=== PATIENT | male | born 1975 | race Caucasian/White ===

== ENCOUNTER 2016-06-07 22:28 | Emergency (ER) | payer OTHER ==
--- NOTE | 2016-06-07 22:32 | PDOC ---
History of Present Illness - General Chief Complaint: Pain, Acute Stated Complaint: PAIN RIGHT CHEST X 3 DAYS Time Seen by Provider: 06/07/16 22:31 History Source: Patient Exam Limitations: No Limitations - History of Present Illness Initial Comments: 06/07/16 22:38 This is a 40-year-old male who comes in complaining of right-sided pleuritic type chest pain. Patient said is been constant 3 days. Patient took some ibuprofen earlier today without relief. Patient denies any cough, congestion, fever, chills. Patient denies any recent heavy lifting or trauma. Patient denies any recent travel. Patient denies any swelling or pain in his legs or PE risk factors. Patient denies any history of family pulmonary embolism. Patient said he is otherwise healthy takes no medication. Patient denies history of similar pain in the past. PAST MEDICAL HISTORY: no significant history PAST SURGICAL HISTORY: no significant history FAMILY HISTORY: no pertinant history SOCIAL HISTORY: Pt lives with family and is employed. MEDICATIONS: reviewed ALLERGIES: As per nursing notes Review of Systems General: No fevers or chills, no weakness, no weight loss HEENT: No change in vision. No sore throat,. No ear pain CardioVascular: Pleuritic type chest pain right-sided as per history of present illness Respiratory:No cough, or wheezing. Gastrointestinal: no nausea, vomitting, diarrhea or constipation, No rectal bleeding Genitourinary: No dysuria, hematuria, or frequency Musculoskeletal: No joint or muscle pain or swelling Neurologic: No headache, vertigo, dizziness or loss of consciousness Psychiatric: nor depression Skin: No rashes or easy bruising Endocrine: no increased thirst or abnormal weight change Allergic: no skin or latex allergy All other systems reviewed and normal Exam: General: Well-nourished well-developed individual, no acute distress HEENT: Throat: Normal, tonsils normal, no erythema or exudate Neck: Supple, no meningeal signs, no lymphadenopathy Eyes::Pupils equal reactive and round, extraocular motion intact Chest: Pain is reproduced on palpation of the right chest. There is no ecchymosis, erythema, or swelling of the area. Cardiac: S1-S2 normal, regular rate and rhythm, no murmurs rubs or gallops Respiratory: Lungs clear to auscultation bilateral Abdomen: Soft, nondistended, normal bowel sounds, nontender to palpation diffusely Extremities: Warm, dry, no cyanosis, clubbing, or edema Skin: No rashes Neuro: Alert and oriented x3, nonfocal exam, grossly intact, normal gait Psych: Normal mood and affect 06/08/16 00:12 Chest x-ray no acute pathology EKG normal sinus rhythm at a rate of 78, normal intervals no acute ST-T wave changes normal EKG Reevaluation post Toradol pain has nearly resolved with Toradol D-dimer and troponin negative Assessment and plan: This is a 40-year-old male with skeletal muscle alert chest wall type pain is uncertain as to the etiology however pain was relieved with an anti- inflammatory. Workup was done and patient had a normal cardiogram, normal chest x-ray and negative d-dimer and troponin. Patient discharged with a prescription for Naprosyn and will follow-up with his primary care doctor Past History - Past Medical History Allergies/Adverse Reactions: Allergies Allergy/AdvReac Type Severity Reaction Status Date / Time Penicillins Allergy Verified 06/07/16 22:30 Home Medications: Ambulatory Orders Naproxen [Naprosyn -] 500 mg PO BID #14 tablet 06/08/16 - Surgical History Cholecystectomy: Yes - Psycho/Social/Smoking Cessation Hx Anxiety: No Suicidal Ideation: No Smoking History: Never smoked Have you smoked in the past 12 months: No Hx Alcohol Use: No Drug/Substance Use Hx: No Substance Use Type: None *Physical Exam - Vital Signs Last Vital Signs Temp Pulse Resp BP Pulse Ox 97.9 F 91 H 16 141/94 96 06/07/16 22:31 06/07/16 22:31 06/07/16 22:31 06/07/16 22:31 06/07/16 22:31 ED Treatment Course - LABORATORY CBC & Chemistry Diagram: 06/07/16 23:05 06/07/16 23:05 - ADDITIONAL ORDERS Additional order review: Laboratory Results 06/07/16 06/07/16 06/07/16 23:05 23:05 23:05 D-Dimer Sodium 136 Potassium 3.7 Chloride 101 Carbon Dioxide 27 Anion Gap 8 BUN 13 Creatinine 1.1 Creat Clearance w eGFR > 60 Random Glucose 109 H Calcium 9.4 Total Bilirubin 0.6 D AST 30 D ALT 26 D Alkaline Phosphatase 53 Creatine Kinase 220 H CK-MB (CK-2) Cancelled 1.5 CK-MB (CK-2) Rel Index 0.7 Troponin I < 0.03 L Total Protein 6.6 Albumin 4.6 06/07/16 23:05 D-Dimer < 200 Sodium Potassium Chloride Carbon Dioxide Anion Gap BUN Creatinine Creat Clearance w eGFR Random Glucose Calcium Total Bilirubin AST ALT Alkaline Phosphatase Creatine Kinase CK-MB (CK-2) CK-MB (CK-2) Rel Index Troponin I Total Protein Albumin 06/07/16 23:05 RBC 5.35 MCV 89.6 MCHC 33.6 RDW 12.1 MPV 10.1 Neutrophils % 55.6 D Lymphocytes % 33.7 D Monocytes % 6.8 Eosinophils % 3.4 D Basophils % 0.5 - RADIOLOGY Radiology Studies Ordered: Category Date Time Status CHEST PA & LAT [RAD] Stat Radiology 06/07/16 22:36 Taken - Medications Given in the ED: ED Medications Discontinued Medications Generic Name Dose Route Start Last Admin Trade Name Freq PRN Reason Stop Dose Admin Ketorolac Tromethamine 30 mg 06/07/16 22:39 06/07/16 23:11 Toradol Injection - IVPUSH 06/07/16 22:40 30 mg ONCE ONE Administration *DC/Admit/Observation/Transfer Diagnosis at time of Disposition: Muscle strain of chest wall Qualifiers: Encounter type: initial encounter Qualified Code(s): S29.011A - Strain of muscle and tendon of front wall of thorax, initial encounter - Discharge Dispostion Disposition: HOME Condition at time of disposition: Stable - Prescriptions Prescriptions: Naproxen [Naprosyn -] 500 mg PO BID #14 tablet - Patient Instructions Additional Instructions: For the pain take Naprosyn 1 tablet twice a day with food don't take on an empty stomach. Return to the emergency department immediately with ANY new, persistent or worsening symptoms. Continue any medications as previously prescribed by your physician. You should follow up with your primary doctor as soon as possible regarding today's emergency department visit. . Please make sure your doctor reviews the results of your emergency evaluation. Thank you for coming to the Emergency Department today for your care. It was a pleasure to see you today. Please note that your evaluation is INCOMPLETE until you follow-up with your doctor.
[2016-06-07 22:34] VITALS: BP 141/94; PULSE 91; TEMP 97.9; BMI 31.1
[2016-06-07] MEDS ORDERED: KETOROLAC TROMETHAMINE 30 MG/1 ML VIAL IVPUSH ONE (22:39)
[2016-06-07] MEDS ORDERED: KETOROLAC TROMETHAMINE 30 MG/1 ML VIAL ONE (23:08)
[2016-06-07 23:18] LABS: BASOPHIL 0.5 % (0-2.0); EOSINOPHIL 3.4 % (0-4.5); MCH 30.1 pg (25.7-33.7); MCHC 33.6 g/dl (32.0-35.9); MEAN CELL VOLUME 89.6 fl (80-96); MEAN PLT VOLUME 10.1 fl (7.5-11.1); NEUTROPHILS 55.6 % (42.8-82.8); PLATELET COUNT 237 K/MM3 (134-434); RDW 12.1 % (11.9-15.9); WHITE BLOOD COUNT 7.4 K/mm3 (4.0-10.0)
[2016-06-07 23:28] LABS: ALBUMIN 4.6 g/dl (3.5-5.0); ALK PHOS 53 U/L (32-92); CALCIUM 9.4 mg/dl (8.4-10.2); SGPT/ALT 26 U/L (10-40); TOT PROT 6.6 g/dl (6.4-8.3)
[2016-06-07 23:29] LABS: CPK(DFH) 220 IU/L (38-174)
[2016-06-07 23:39] LABS: TROPONIN I (DFP) < 0.03 ng/ml (0.03-0.50)
[2016-06-07 23:44] LABS: CK MB 1.5 ng/ml (0.3-4.0)
[2016-06-07 23:45] LABS: ANION GAP 8 (8-16); BILIRUBIN,TOTAL 0.6 mg/dl (0.2-1.0); CO2 27 mmol/L (22-28); CREATININE 1.1 mg/dl (0.6-1.3); GLUCOSE,RANDOM 109 mg/dl (74-106); SGOT/AST 30 U/L (10-42)
--- NOTE | 2016-06-08 16:21 | EKG ---
Test Reason : Blood Pressure : / mmHG Vent. Rate : 078 BPM Atrial Rate : 078 BPM P-R Int : 156 ms QRS Dur : 088 ms QT Int : 368 ms P-R-T Axes : 052 060 029 degrees QTc Int : 419 ms NORMAL SINUS RHYTHM NORMAL ECG NO PREVIOUS ECGS AVAILABLE Confirmed by LILLY BERNAL MD ([id number]) on 06/08/2016 4:20:52 PM Referred By: KIRA Confirmed By:LILLY BERNAL MD
== END 2016-06-08 00:39 | disposition home or self-care (01) ==
LOC: FER 22:28
PROC: 3E0333Z Introduction of Anti-inflammatory into Peripheral Vein, Percutaneous Approach (ICD-10-PCS; principal; 2016-06-07)
DX: S29.011A Strain of muscle and tendon of front wall of thorax, initial encounter (principal); X58.XXXA Exposure to other specified factors, initial encounter; Y93.9 Activity, unspecified; Y92.9 Unspecified place or not applicable
CPT/HCPCS: 36415; 71020-TC; 80053; 82550; 82553; 84484; 85025; 85379; 93005; 96374; 99282-25

== ENCOUNTER 2016-07-26 10:05 | Emergency (ER) | payer OTHER ==
[2016-07-26 10:19] VITALS: BP 119/84; PULSE 80; TEMP 97.6; BMI 31.1
[2016-07-26] MEDS ORDERED: KETOROLAC TROMETHAMINE 30 MG/1 ML VIAL IVPUSH ONE (10:59)
[2016-07-26] MEDS ORDERED: KETOROLAC TROMETHAMINE 30 MG/1 ML VIAL ONE (11:01)
--- NOTE | 2016-07-26 11:08 | PDOC ---
History of Present Illness - General Chief Complaint: Back Pain Stated Complaint: BACK PAIN Time Seen by Provider: 07/26/16 10:33 History Source: Patient Exam Limitations: No Limitations - History of Present Illness Initial Comments: 07/26/16 11:02 40 yr male with left back pain for 3 days worse the past 24hrs. Pt denies fever , neg nvd. Pt denies urinary complaints. Pt states pain worse with walking and lying down on left side. Pt has history of herniated discs in back and neck states this pain is different more intense. Severity: reports: moderate Pain Location: reports: back Past History - Past Medical History Allergies/Adverse Reactions: Allergies Allergy/AdvReac Type Severity Reaction Status Date / Time Penicillins Allergy Verified 07/26/16 10:15 Home Medications: Ambulatory Orders Ketorolac Tromethamine [Toradol] 10 mg PO Q6H PRN #20 tablet 07/26/16 Other medical history: chonic back and neck pain - Surgical History Cholecystectomy: Yes - Psycho/Social/Smoking Cessation Hx Anxiety: No Suicidal Ideation: No Smoking History: Never smoked Have you smoked in the past 12 months: No Information on smoking cessation initiated: No Hx Alcohol Use: No Drug/Substance Use Hx: No Substance Use Type: None Trauma Specific PMHX - Complaint Specific PMHX Arthritis: No Back Injury: Yes Review of Systems - Review of Systems Able to Perform ROS?: Yes Is the patient limited Barbadian proficient: No Constitutional: No: Symptoms Reported HEENTM: No: Symptoms Reported Respiratory: No: Symptoms reported Cardiac (ROS): No: Symptoms Reported ABD/GI: No: Symptoms Reported : No: Symptoms Reported Musculoskeletal: Yes: Symptoms Reported, See HPI, Back Pain Integumentary: No: Symptoms Reported Neurological: No: Symptoms reported *Physical Exam - Vital Signs Last Vital Signs Temp Pulse Resp BP Pulse Ox 97.6 F 80 18 119/84 100 07/26/16 10:16 07/26/16 10:16 07/26/16 10:16 07/26/16 10:16 07/26/16 10:16 - Physical Exam General Appearance: Yes: Nourished, Appropriately Dressed HEENT: positive: EOMI, BEAU Neck: positive: Supple. negative: Tender Respiratory/Chest: positive: Lungs Clear, Normal Breath Sounds. negative: Chest Tender Cardiovascular: positive: Regular Rhythm, Regular Rate Gastrointestinal/Abdominal: positive: Normal Bowel Sounds, Soft Musculoskeletal: positive: Normal Inspection, CVA Tenderness (L). negative: CVA Tenderness, CVA Tenderness (R), Vertebral Tenderness Extremity: positive: Normal Capillary Refill, Normal Inspection, Normal Range of Motion Integumentary: positive: Normal Color, Dry, Warm Neurologic: positive: Fully Oriented, Alert, Normal Mood/Affect, Normal Response , Motor Strength 09/24 ED Treatment Course - LABORATORY CBC & Chemistry Diagram: 07/26/16 11:01 07/26/16 11:01 Medical Decision Making - Medical Decision Making 07/26/16 11:06 cc: left mid back to flank pain for 3 days worse the past 24hrs no urinary or bowel dysfunction neg fever or chills pain worse with movement and lying down, worse with walking will r/o renal colic r/o musculoskeltal 07/26/16 13:33 pt feels no pain after toradol CT results pending labs are WNL *DC/Admit/Observation/Transfer Diagnosis at time of Disposition: Back pain Qualifiers: Back pain location: back pain in other location Chronicity: acute Qualified Code(s): M54.9 - Dorsalgia, unspecified - Discharge Dispostion Disposition: HOME Condition at time of disposition: Improved - Prescriptions Prescriptions: Ketorolac Tromethamine [Toradol] 10 mg PO Q6H PRN #20 tablet PRN Reason: Back Pain - Patient Instructions Additional Instructions: take toradol for any pain drink at least 1-2 liters of water follow with your primary care doctor Return to ER for any worsening symptoms
[2016-07-26 11:19] LABS: URINE APPEARANCE CLEAR; URINE BILIRUBIN NEGATIVE (NEGATIVE); URINE BLOOD NEGATIVE (NEGATIVE); URINE COLOR YELLOW; URINE GLUCOSE (UA) NEGATIVE (NEGATIVE); URINE KETONE NEGATIVE (NEGATIVE); URINE LEUK ESTERASE NEGATIVE (NEGATIVE); URINE NITRITE NEGATIVE (NEGATIVE); URINE PROTEIN NEGATIVE (NEGATIVE); URINE UROBILINOGEN NEGATIVE E.U./dl (0.2-1.0)
[2016-07-26 11:33] LABS: BASOPHIL 0.6 % (0-2.0); EOSINOPHIL 3.3 % (0-4.5); MCH 30.5 pg (25.7-33.7); MCHC 33.8 g/dl (32.0-35.9); MEAN CELL VOLUME 90.3 fl (80-96); MEAN PLT VOLUME 9.7 fl (7.5-11.1); NEUTROPHILS 57.7 % (42.8-82.8); PLATELET COUNT 209 K/MM3 (134-434); RDW 12.8 % (11.9-15.9); WHITE BLOOD COUNT 6.1 K/mm3 (4.0-10.0)
[2016-07-26 11:55] LABS: ALBUMIN 4.3 g/dl (3.4-5.0); ALK PHOS 77 U/L (45-117); ANION GAP 7 (8-16); BILIRUBIN,TOTAL 0.6 mg/dL (0.2-1.0); CALCIUM 9.5 mg/dL (8.5-10.1); CO2 29 mmol/L (21-32); CREATININE 1.1 mg/dL (0.7-1.3); GLUCOSE,RANDOM 101 mg/dL (74-106); SGOT/AST 21 U/L (15-37); SGPT/ALT 39 U/L (12-78); TOT PROT 7.5 g/dl (6.4-8.2)
== END 2016-07-26 13:56 | disposition home or self-care (01) ==
LOC: JERFT 10:05
PROC: 3E0333Z Introduction of Anti-inflammatory into Peripheral Vein, Percutaneous Approach (ICD-10-PCS; principal; 2016-07-26)
DX: M54.89 Other dorsalgia (principal); G89.29 Other chronic pain
CPT/HCPCS: 36415; 74176; 80053; 81003; 85025; 96374; 99282-25

== ENCOUNTER 2019-11-26 23:20 | Emergency (ER) | payer OTHER ==
[2019-11-26 23:37] VITALS: BP 138/96; PULSE 87; TEMP 98.2; BMI 29.1
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
[2019-11-27] MEDS ORDERED: KETOROLAC TROMETHAMINE 60 MG/2 ML VIAL IM ONE (00:56)
[2019-11-27] MEDS ORDERED: KETOROLAC TROMETHAMINE 60 MG/2 ML VIAL ONE (00:59)
== END 2019-11-27 01:22 | disposition home or self-care (01) ==
LOC: FER 23:20
PROC: 3E023GC Introduction of Other Therapeutic Substance into Muscle, Percutaneous Approach (ICD-10-PCS; principal; 2019-11-27)
DX: S63.502A Unspecified sprain of left wrist, initial encounter (principal); S46.911A Strain of unspecified muscle, fascia and tendon at shoulder and upper arm level, right arm, initial encounter; S80.11XA Contusion of right lower leg, initial encounter; V49.40XA Driver injured in collision with unspecified motor vehicles in traffic accident, initial encounter
CPT/HCPCS: 73030-TC-RT-FY; 73110-TC-LT-FY; 73130-TC-LT-FY; 73502-TC-RT-FY; 73560-TC-RT-FY; 99284-25

== ENCOUNTER 2020-07-25 11:28 | Inpatient (IN) | payer OTHER ==
[2020-07-25] MEDS ORDERED: SODIUM CHLORIDE 0.9% 500 ML INFUS.BAG IV ONE (12:49)
[2020-07-25] MEDS ORDERED: ACETAMINOPHEN 325 MG TABLET (FP) PO ONE (12:49)
[2020-07-25] MEDS ORDERED: ACETAMINOPHEN 325 MG TABLET (FP) ONE ×2 (13:41→19:36)
[2020-07-25 13:51] LABS: BASO % 0.8 % (0-2.0); EOS % 0.1 % (0-4.5); HEMATOCRIT 44.7 % (35.4-49); HEMOGLOBIN 15.5 GM/dL (11.7-16.9); LYMPH % 26.3 % (8-40); MCHC 34.6 g/dl (32.0-35.9); MEAN CELL VOLUME 89.7 fl (80-96); MEAN PLT VOLUME 10.7 fl (7.5-11.1); MONO % 6.1 % (3.8-10.2); NEUT % 66.7 % (42.8-82.8); RBC 4.98 M/mm3 (4.00-5.60); RDW 12.7 % (11.9-15.9); WHITE BLOOD COUNT 3.1 K/mm3 (4.0-10.0)
[2020-07-25 13:56] LABS: INR 1.2 (0.83-1.09); PROTHROMBIN TIME (PATIENT) 14.7 SEC (9.7-13.0)
[2020-07-25 13:59] LABS: ACTIVATED PTT 34.3 SECONDS (25.2-36.5)
[2020-07-25 14:07] LABS: CHLORIDE 98 mmol/L (98-107); POTASSIUM 3.9 mmol/L (3.5-5.1); SODIUM 132 mmol/L (136-145)
[2020-07-25 14:09] LABS: ALBUMIN 3.6 g/dl (3.4-5.0); ANION GAP 7 MMOL/L (8-16); BLOOD UREA NITROGEN 8.8 mg/dL (7-18); CALCIUM 8.2 mg/dL (8.5-10.1); CO2 27 mmol/L (21-32); GLUCOSE,RANDOM 103 mg/dL (74-106)
[2020-07-25 14:12] LABS: BILIRUBIN,DIRECT 0.2 mg/dL (0.0-0.2); CREATININE 1.1 mg/dL (0.55-1.3); SGOT/AST 71 U/L (15-37); SGPT/ALT 64 U/L (13-61)
[2020-07-25 14:12] LABS: VENOUS BASE EXCESS 1.3 mmol/L (-2-2); VENOUS O2 SATURATION 48.4 % (70-80); VENOUS PCO2 47.3 mmHg (38-52); VENOUS PH 7.378 (7.310-7.410)
[2020-07-25 14:14] LABS: BILIRUBIN,TOTAL 0.4 mg/dL (0.2-1); TOT PROT 7.2 g/dl (6.4-8.2)
[2020-07-25 14:15] LABS: ALK PHOS 55 U/L (45-117)
[2020-07-25 14:16] LABS: LDH 373 U/L (87-246)
[2020-07-25 14:28] LABS: PLATELET COUNT 142 K/MM3 (134-434)
[2020-07-25] MEDS ORDERED: AZITHROMYCIN IVPB 500 MG/250 ML BAG IVPB ONE ×2 (16:41→17:57)
[2020-07-25 18:22] LABS: EPI CELLS 17 /uL (0-25.1); HYALINE CASTS 0 /uL (0-3.1); URINE APPEARANCE CLEAR; URINE BACTERIA 21 /uL (0-1359); URINE BILIRUBIN NEGATIVE (NEGATIVE); URINE COLOR YELLOW; URINE GLUCOSE (UA) NEGATIVE (NEGATIVE); URINE KETONE TRACE (NEGATIVE); URINE LEUK ESTERASE NEGATIVE (NEGATIVE); URINE NITRITE NEGATIVE (NEGATIVE); URINE PROTEIN 2+ (NEGATIVE); URINE RBC 9 /uL (0-23.9); URINE UROBILINOGEN 0.2 mg/dL (0.2-1.0); URINE WBC 40 /uL (0-25.8)
[2020-07-25] MEDS: ACETAMINOPHEN 325 MG TABLET (FP) PO PRN (19:58)
[2020-07-26 02:52] VITALS: BMI 28.8
[2020-07-26] MEDS: ACETAMINOPHEN 325 MG TABLET (FP) PO PRN (06:16)
[2020-07-26 08:37] LABS: BASO % 0.5 % (0-2.0); EOS % 0.5 % (0-4.5); HEMATOCRIT 39.8 % (35.4-49); HEMOGLOBIN 13.8 GM/dL (11.7-16.9); LYMPH % 35.6 % (8-40); MCH 31.2 pg (25.7-33.7); MCHC 34.7 g/dl (32.0-35.9); MEAN PLT VOLUME 11.1 fl (7.5-11.1); MONO % 8.8 % (3.8-10.2); NEUT % 54.6 % (42.8-82.8); PLATELET COUNT 143 K/MM3 (134-434); RBC 4.43 M/mm3 (4.00-5.60); RDW 12.8 % (11.9-15.9); WHITE BLOOD COUNT 3.2 K/mm3 (4.0-10.0)
[2020-07-26 08:53] LABS: POTASSIUM 3.7 mmol/L (3.5-5.1)
[2020-07-26 08:59] LABS: ALBUMIN 3.2 g/dl (3.4-5.0)
[2020-07-26 09:01] LABS: BLOOD UREA NITROGEN 8.7 mg/dL (7-18)
[2020-07-26 09:03] LABS: CREATININE 0.9 mg/dL (0.55-1.3)
[2020-07-26 09:04] LABS: BILIRUBIN,TOTAL 0.5 mg/dL (0.2-1)
[2020-07-26 09:06] LABS: TOT PROT 6.4 g/dl (6.4-8.2)
[2020-07-26] MEDS: ENOXAPARIN NA (PORCINE) 40 MG/0.4 ML DISP.SYRIN SQ SCH (13:34)
[2020-07-26] MEDS ORDERED: LACTATED RINGERS SOLUTION 1000 ML INFUS.BAG IV SCH (14:00)
[2020-07-26] MEDS: guaiFENesin/CODEINE 10 ML UNIT-DOSE CUPS PO PRN (14:21)
[2020-07-26] MEDS: PANTOPRAZOLE 40 MG TABLET PO SCH (14:21)
[2020-07-26] MEDS: CHOLECALCIFEROL (VIT D3) 1,000 UNIT (25 MCG) TABLET PO SCH (14:21)
[2020-07-26] MEDS: ASCORBIC ACID 500 MG TABLET (FP) PO SCH ×2 (14:21→22:49)
[2020-07-26] MEDS: DEXAMETHASONE SOD PHOSPHATE 10 MG/1 ML VIAL IVPUSH SCH (14:22)
[2020-07-26] MEDS: LACTATED RINGERS SOLUTION 1,000 ML/1,000 ML INFUS.BAG IV SCH (14:22)
[2020-07-26] MEDS: INSULIN SLIDING SCALE (NOVOLOG) 1 VIAL SQ SCH ×2 (16:47→22:48)
[2020-07-26] MEDS: DOXYCYCLINE HYCLATE 100 MG CAPSULE PO SCH (17:35)
[2020-07-26] MEDS ORDERED: ZINC SULFATE 220 MG TABLET PO SCH (22:00)
[2020-07-27] MEDS: LACTATED RINGERS SOLUTION 1,000 ML/1,000 ML INFUS.BAG IV SCH ×2 (02:18→16:26)
[2020-07-27] MEDS: INSULIN SLIDING SCALE (NOVOLOG) 1 VIAL SQ SCH ×4 (06:47→22:18)
[2020-07-27] MEDS: guaiFENesin/CODEINE 10 ML UNIT-DOSE CUPS PO PRN ×2 (06:51→22:17)
[2020-07-27] MEDS: ASCORBIC ACID 500 MG TABLET (FP) PO SCH ×2 (09:05→22:17)
[2020-07-27] MEDS: CHOLECALCIFEROL (VIT D3) 1,000 UNIT (25 MCG) TABLET PO SCH (09:05)
[2020-07-27] MEDS: PANTOPRAZOLE 40 MG TABLET PO SCH (09:05)
[2020-07-27] MEDS: DOXYCYCLINE HYCLATE 100 MG CAPSULE PO SCH ×2 (09:05→17:41)
[2020-07-27] MEDS: ZINC SULFATE 220 MG CAPSULE (FP) PO SCH (09:06)
[2020-07-27] MEDS: DEXAMETHASONE SOD PHOSPHATE 10 MG/1 ML VIAL IVPUSH SCH (09:06)
[2020-07-27] MEDS: ENOXAPARIN NA (PORCINE) 40 MG/0.4 ML DISP.SYRIN SQ SCH (09:06)
[2020-07-27 10:04] LABS: HEMOGLOBIN 15.1 GM/dL (11.7-16.9); MCHC 34.2 g/dl (32.0-35.9); MEAN CELL VOLUME 90.5 fl (80-96); MEAN PLT VOLUME 11.7 fl (7.5-11.1); PLATELET COUNT 181 K/MM3 (134-434); RBC 4.86 M/mm3 (4.00-5.60); RDW 12.9 % (11.9-15.9); WHITE BLOOD COUNT 2.5 K/mm3 (4.0-10.0)
[2020-07-27 10:12] LABS: INR 1.18 (0.83-1.09); PROTHROMBIN TIME (PATIENT) 14.4 SEC (9.7-13.0)
[2020-07-27 10:14] LABS: ACTIVATED PTT 31.6 SECONDS (25.2-36.5)
[2020-07-27 10:21] LABS: CHLORIDE 105 mmol/L (98-107); SODIUM 139 mmol/L (136-145)
[2020-07-27 10:36] LABS: BLOOD UREA NITROGEN 10.9 mg/dL (7-18)
[2020-07-27 10:37] LABS: ANION GAP 8 MMOL/L (8-16); CALCIUM 8.6 mg/dL (8.5-10.1); CO2 26 mmol/L (21-32); GLUCOSE,RANDOM 121 mg/dL (74-106)
[2020-07-27 10:38] LABS: ALBUMIN 3.1 g/dl (3.4-5.0); MAGNESIUM 2.3 mg/dL (1.8-2.4)
[2020-07-27 10:39] LABS: SGPT/ALT 99 U/L (13-61)
[2020-07-27 10:40] LABS: CREATININE 0.8 mg/dL (0.55-1.3); PHOSPHOROUS 3.1 mg/dL (2.5-4.9); SGOT/AST 85 U/L (15-37)
[2020-07-27 10:41] LABS: LDH 389 U/L (87-246); TOT PROT 6.9 g/dl (6.4-8.2)
[2020-07-27 10:42] LABS: ALK PHOS 54 U/L (45-117)
[2020-07-27 10:44] LABS: BILIRUBIN,TOTAL 0.5 mg/dL (0.2-1)
[2020-07-28 05:47] VITALS: BP 122/77; PULSE 79; TEMP 97.7
[2020-07-28] MEDS: INSULIN SLIDING SCALE (NOVOLOG) 1 VIAL SQ SCH ×2 (06:06→10:51)
[2020-07-28] MEDS: PANTOPRAZOLE 40 MG TABLET PO SCH (09:50)
[2020-07-28] MEDS: ASCORBIC ACID 500 MG TABLET (FP) PO SCH (09:50)
[2020-07-28] MEDS: ZINC SULFATE 220 MG CAPSULE (FP) PO SCH (09:50)
[2020-07-28] MEDS: ENOXAPARIN NA (PORCINE) 40 MG/0.4 ML DISP.SYRIN SQ SCH (09:51)
[2020-07-28] MEDS: guaiFENesin/CODEINE 10 ML UNIT-DOSE CUPS PO PRN (09:51)
[2020-07-28] MEDS: DEXAMETHASONE SOD PHOSPHATE 10 MG/1 ML VIAL IVPUSH SCH (09:51)
[2020-07-28] MEDS: CHOLECALCIFEROL (VIT D3) 1,000 UNIT (25 MCG) TABLET PO SCH (09:52)
[2020-07-28] MEDS: DOXYCYCLINE HYCLATE 100 MG CAPSULE PO SCH (09:52)
[2020-07-28 10:11] LABS: BASO % 0.3 % (0-2.0); HEMATOCRIT 43.2 % (35.4-49); HEMOGLOBIN 15.1 GM/dL (11.7-16.9); LYMPH % 14.7 % (8-40); MCH 31.2 pg (25.7-33.7); MCHC 34.9 g/dl (32.0-35.9); MEAN CELL VOLUME 89.5 fl (80-96); MEAN PLT VOLUME 11.1 fl (7.5-11.1); MONO % 6.6 % (3.8-10.2); NEUT % 78.4 % (42.8-82.8); PLATELET COUNT 236 K/MM3 (134-434); RBC 4.82 M/mm3 (4.00-5.60); WHITE BLOOD COUNT 5.2 K/mm3 (4.0-10.0)
[2020-07-28 10:34] LABS: POTASSIUM 3.9 mmol/L (3.5-5.1)
[2020-07-28 10:39] LABS: ALBUMIN 3.3 g/dl (3.4-5.0)
[2020-07-28 10:40] LABS: BLOOD UREA NITROGEN 13.5 mg/dL (7-18); MAGNESIUM 2.2 mg/dL (1.8-2.4)
[2020-07-28 10:42] LABS: CREATININE 0.9 mg/dL (0.55-1.3)
[2020-07-28 10:43] LABS: PHOSPHOROUS 3.2 mg/dL (2.5-4.9)
[2020-07-28 10:44] LABS: BILIRUBIN,TOTAL 0.6 mg/dL (0.2-1)
[2020-07-28 10:49] LABS: CALCIUM 8.8 mg/dL (8.5-10.1)
== END 2020-07-28 15:57 | disposition home or self-care (01) | DRG 177 ==
LOC: JER 11:28 → JERBED 14:41 → J6S 07-26 02:27
PROVIDERS: ADMIT Family Medicine; ATTEND Student in an Organized Health Care Education/Training Program
DX: U07.1 COVID-19 (principal); J12.82 Pneumonia due to coronavirus disease 2019; J96.01 Acute respiratory failure with hypoxia; A08.39 Other viral enteritis; M62.82 Rhabdomyolysis; R53.1 Weakness; R53.83 Other fatigue; K76.0 Fatty (change of) liver, not elsewhere classified; R63.0 Anorexia; Z68.28 Body mass index [BMI] 28.0-28.9, adult; R51.9 Headache, unspecified; R94.5 Abnormal results of liver function studies; R05 Cough; R10.13 Epigastric pain; D72.819 Decreased white blood cell count, unspecified; Z88.0 Allergy status to penicillin
CPT/HCPCS: 36415; 71045-TC-FY; 76705-TC; 80053; 80074; 81003; 82248; 82550; 82553; 82728; 82803; 82962; 83605; 83615; 83735; 84100; 84484; 85025; 85027; 85379; 85610; 85730; 86140; 86769; 86850; 86900; 86901; 87040; 87804; 87899; 93005; 93010; 94010; 99285-25; C9803; J1100; U0003

== ENCOUNTER 2020-12-04 06:18 | Day surgery (SDC) | payer OTHER ==
[2020-11-28 12:21] VITALS: BMI 31.1
[2020-12-04] MEDS ORDERED: MIDAZOLAM HCL 2 MG/2 ML SINGLE DOSE VIAL ONE (07:04)
[2020-12-04] MEDS ORDERED: ROPIVACAINE HCL 0.5% 30ML VIAL ONE (07:04)
[2020-12-04] MEDS ORDERED: DEXAMETHASONE SOD PHOSPHATE 10 MG/1 ML VIAL ONE (07:21)
[2020-12-04] MEDS ORDERED: PROPOFOL 20 ML ONE ×2 (07:55)
[2020-12-04] MEDS ORDERED: SUCCINYLCHOLINE CHLORIDE 200 MG/10 ML SYRINGE ONE (07:55)
[2020-12-04] MEDS ORDERED: ONDANSETRON 4 MG/2 ML VIAL ONE (08:14)
[2020-12-04] MEDS ORDERED: DEXAMETHASONE SOD PHOSPHATE 4 MG/1 ML VIAL ONE (08:14)
[2020-12-04] MEDS ORDERED: ceFAZolin SODIUM 1 GM VIAL ONE (08:16)
[2020-12-04] MEDS ORDERED: oxyCODONE HCL 5 MG TABLET PO PRN (09:28)
[2020-12-04] MEDS ORDERED: ONDANSETRON 4 MG/2 ML VIAL IVPUSH PRN (09:28)
[2020-12-04] MEDS ORDERED: LACTATED RINGERS SOLUTION 1,000 ML IV SCH (09:30)
[2020-12-04 10:44] VITALS: TEMP 97.8
[2020-12-04 12:04] VITALS: BP 121/84; PULSE 73
== END 2020-12-04 12:06 | disposition home or self-care (01) ==
LOC: FASU 06:18
PROVIDERS: ATTEND Orthopaedic Surgery
PROC: 0RBJ4ZZ Excision of Right Shoulder Joint, Percutaneous Endoscopic Approach (ICD-10-PCS; principal; 2020-12-04 08:28)
PROC: 0PB94ZZ Excision of Right Clavicle, Percutaneous Endoscopic Approach (ICD-10-PCS; 2020-12-04 08:28)
DX: M75.111 Incomplete rotator cuff tear or rupture of right shoulder, not specified as traumatic (principal); M75.41 Impingement syndrome of right shoulder
CPT/HCPCS: 94760; J1100

== ENCOUNTER 2022-05-14 20:28 | Emergency (ER) | payer OTHER ==
[2022-05-14 20:51] VITALS: RESP 18; TEMP 97.9; BMI 31.1
[2022-05-14] MEDS ORDERED: KETOROLAC TROMETHAMINE 30 MG/1 ML VIAL IVPUSH ONE (21:10)
[2022-05-14] MEDS ORDERED: KETOROLAC TROMETHAMINE 30 MG/1 ML VIAL ONE (21:14)
[2022-05-14 21:41] LABS: HEMATOCRIT 45.6 % (35.4-49); HEMOGLOBIN 16.1 G/dL (11.7-16.9); MCH 31.8 pg (25.7-33.7); MCHC 35.4 g/dl (32.0-35.9); MEAN PLT VOLUME 9.4 fl (7.5-11.1); PLATELET COUNT 233.9 10^3/uL (134-434); RBC 5.07 10^6/uL (4.00-5.60); RDW 13.4 % (11.9-15.9); WHITE BLOOD COUNT 7.8 10^3/uL (4.0-10.8)
[2022-05-14 21:59] LABS: ALBUMIN 4.3 g/dl (3.4-5.0); BILIRUBIN,TOTAL 0.7 mg/dl (0.2-1); CALCIUM 9.2 mg/dl (8.5-10); TOT PROT 7.1 g/dl (6.4-8.2)
[2022-05-14] MEDS ORDERED: ACETAMINOPHEN 1000 MG/100 ML BAG IVPB ONE (22:31)
[2022-05-14] MEDS ORDERED: ACETAMINOPHEN INJECTION 100 ML IVPB ONE (22:34)
[2022-05-14 23:20] VITALS: BP 127/92; PULSE 72
== END 2022-05-14 23:24 | disposition home or self-care (01) ==
LOC: FER 20:28
PROC: 3E0333Z Introduction of Anti-inflammatory into Peripheral Vein, Percutaneous Approach (ICD-10-PCS; principal; 2022-05-14)
PROC: 3E0333Z Introduction of Anti-inflammatory into Peripheral Vein, Percutaneous Approach (ICD-10-PCS; 2022-05-14)
DX: S29.011A Strain of muscle and tendon of front wall of thorax, initial encounter (principal); X50.0XXA Overexertion from strenuous movement or load, initial encounter
CPT/HCPCS: 36415; 71046-TC-FY; 80053; 84484; 85027; 85379; 93005; 99285-25